=== PATIENT | male | born 1935 | race Caucasian/White ===

== ENCOUNTER 2016-05-20 10:21 | Outpatient (CLI) | payer MEDICARE, OTHER ==
[2016-05-20 11:16] LABS: Calc. Creatinine Clearance 0 mL/min (70-130); Estimated GFR-MDRD Greater than 90
== END 2016-05-20 10:22 | disposition home or self-care (01) ==
LOC: MADLAB 10:21
PROVIDERS: ATTEND Internal Medicine Medical Oncology
DX: C34.11 Malignant neoplasm of upper lobe, right bronchus or lung (principal); E53.9 Vitamin B deficiency, unspecified; R11.2 Nausea with vomiting, unspecified
CPT/HCPCS: 36415; 82565

== ENCOUNTER 2016-06-08 13:56 | Outpatient (CLI) | payer MEDICARE, OTHER ==
[2016-06-08 14:25] LABS: Bilirubin Negative (Negative); Blood, Urine Negative (Negative); Clarity Clear (Clear); Glucose, Urine (Dipstick) Negative (Negative); Leukocyte Negative (Negative); Nitrite Negative (Negative); Protein, Urine (Dipstick) Negative (Neg-Trace); Specific Gravity, Urine 1.025 (1.005-1.030)
[2016-06-08 14:43] LABS: ALT (SGPT) 14 U/L (0-55); AST (SGOT) 16 U/L (5-34); Albumin 4.1 g/dL (3.4-4.8); Alkaline Phosphatase 109 U/L (40-150); Anion Gap 18 mmol/L (10-20); BUN (Urea Nitrogen) 13 mg/dL (8.4-25.7); Bilirubin, Direct 0.1 mg/dL (0.1-0.3); Bilirubin, Total 0.3 mg/dL (0.2-1.2); Calc. Creatinine Clearance 0 mL/min (70-130); Calcium 9.1 mg/dL (7.8-10.44); Carbon Dioxide 28 mmol/L (23-31); Chloride 96 mmol/L (98-107); Estimated GFR-MDRD 83; Glucose 166 mg/dL (83-110); Potassium 3.9 mmol/L (3.5-5.1); Protein, Total 6.8 g/dL (5.8-8.1); Sodium 138 mmol/L (136-145)
[2016-06-08 15:33] LABS: Bacteria/HPF Rare-Few HPF (None Seen); RBC/HPF 0-3 HPF (0-3); Squamous Epithelial 0-3 HPF (0-3); WBC/HPF 0-3 HPF (0-3)
[2016-06-08 16:08] LABS: Mean Corpuscular HGB CONC 33.8 g/dL (32.0-36.0); Mean Corpuscular Volume 94.9 fL (80.0-94.0); Mean Platelet Volume 7.6 fL (7.4-10.4); Platelet Count 121 thou/uL (130-400); RBC Distribution Width 12.2 % (11.5-14.5); Red Blood Cell (RBC) Count 4.67 mill/uL (4.70-6.10); White Blood Cell (WBC) Count 5.4 thou/uL (4.8-10.8)
[2016-06-08 16:12] LABS: Band 1 % (5-11); Eosinophils 3 % (0-10); Lymphocytes 28 % (21-51); MDiff Complete? YES; Manual Diff?? YES; Monocytes 5 % (0-10); Neutrophil 63 % (42-75)
[2016-06-08 16:13] LABS: Anisocytosis SLIGHT = 6-15 cells (100X) (0-5/hpf)
[2016-06-08 16:14] LABS: PLT Morphology Comment Appears Adequate
== END 2016-06-08 13:57 | disposition home or self-care (01) ==
LOC: MADLAB 13:56
PROVIDERS: ATTEND Urology
DX: C61 Malignant neoplasm of prostate (principal); R35.1 Nocturia
CPT/HCPCS: 36415; 80048; 80076; 81001; 84153; 85025; 87086

== ENCOUNTER 2016-08-11 14:50 | Inpatient (IN) | payer MEDICARE, OTHER ==
[2016-08-11] MEDS ORDERED: Benzonatate 100 MG CAP PO PRN (17:35)
[2016-08-11] MEDS ORDERED: Acetaminophen 325 MG TAB PO PRN (17:42)
[2016-08-11] MEDS: Ipratropium Bromide 2.5 ml Neb NEB SCH (19:10)
[2016-08-11] MEDS: Mometasone/Formoterol 60 PUFF AER INH SCH (19:28)
[2016-08-11] MEDS ORDERED: Acyclovir 200 mg Capsule ONE (20:35)
[2016-08-11] MEDS: Acyclovir 200 mg Capsule PO SCH (20:45)
[2016-08-11] MEDS: Doxycycline 100 MG CAP PO SCH (20:45)
[2016-08-11] MEDS: Cefdinir 300 MG CAP PO SCH (20:45)
[2016-08-11] MEDS: diphenhydrAMINE HCl 25 MG CAP PO SCH (20:46)
[2016-08-11] MEDS: Tamsulosin HCl 0.4 MG CAP PO SCH (20:46)
[2016-08-11] MEDS: Simvastatin 20 MG TAB PO SCH (20:47)
[2016-08-11] MEDS: Triamcinolone 0.1% Cream 15 GM TUBE TOP SCH (20:47)
[2016-08-11] MEDS: Dronedarone HCl 400 MG TAB PO SCH (20:49)
[2016-08-11] MEDS: Albuterol Sulfate 2.5 mg/3 ml Neb NEB PRN (20:51)
[2016-08-11] MEDS ORDERED: Donepezil HCl 10 MG TAB PO SCH (21:00)
[2016-08-12] MEDS: Acyclovir 200 mg Capsule PO SCH ×6 (00:18→23:45)
[2016-08-12] MEDS: Ipratropium Bromide 2.5 ml Neb NEB SCH ×5 (00:19→23:45)
--- NOTE | 2016-08-12 03:22 | HP ---
DATE OF ADMISSION: 08/11/2016 ATTENDING: Dr. Welch. REASON FOR ADMISSION: General weakness. HISTORY OF PRESENT ILLNESS: Mr. Reyna was recently admitted from [facility] on 08/01/2016 to 08/05/2016 secondary to chronic obstructive pulmonary disease exacerbation, atrial fibrillation with rapid ventricular response. He was continued on Multaq and was started on diltiazem p.o. after receiving Cardizem drip in the hospital.Patient was discharged, with rate controlled and with improved COPD exacerbation. He was discharged on doxycycline 100 mg b.i.d. for 7 days and Omnicef 300 mg p.o. b.i.d. for 7 days and Medrolpak. Spouse who serve as the patient's primary caregiver/surrogate decision maker took the patient to the clinic today for routine followup. Spouse reports that patient remains generally weak at home. Patient also reports intermittent dyspnea on exertion, noticeable after walking at a certain distance. reports that patient has to stop in the middle of walking with significant shortness of breath, before he can continue what he is doing. He had not been coughing much and he has been receiving bronchodilator treatment intermittently at home. Patient denies chest pain, pain with breathing, sputum production or bloody sputum.He has been febrile-free. In the clinic, patient reports he feels so tired when roomed in, wanting to rest. His O2 sats at that time was 91% at room air. Patient's ambulatory oxygen saturation showed significant desaturation at 83% at room air. Patient's O2 sats improved to 95% upon placement of continuous oxygenation per nasal cannula, well maintained to greater than 94% at 2 liters 02. The patient reports feeling much better upon resting. Overall, vital signs are within normal limits. His heart rate has been well controlled. After further discussion of the patient's treatment options, patient and spouse decided to proceed with skilled rehabilitation in [facility] post- hospitalization for muscle strengthening and gait training.He will also be monitored for COPD symptoms. Thus, patient was referred to [facility] and admitted for Skilled rehabilitation in [facility] swing bed. When reevaluated in the room, patient was lying comfortably in bed. No family member was present at bedside. The patient reports he is doing fine. He started therapy. He started walking with therapy earlier and did fine. He did not have any symptoms of shortness of breath that he was continuously on oxygen therapy per nasal cannula. No new issues reported. PAST MEDICAL HISTORY: COPD, hypertension, dyslipidemia, chronic atrial fibrillation, history of prostate cancer status post chemo, dementia, BPH. PAST SURGICAL HISTORY: A kidney stone lithotripsy. SOCIAL HISTORY: Lives at home with spouse who serves as the primary caregiver. He was a former cigarette smoker. No alcohol abuse, no drug use. FAMILY HISTORY: Noncontributory. ALLERGIES: None. CURRENT MEDICATIONS: Omnicef 300 mg p.o. b.i.d. for one more day, doxycycline 100 mg p.o. b.i.d. for one more day, Multaq 400 mg 2 times a day, Advair 1 puff 2 times a day, Spiriva HandiHaler 18 mcg inhalation 1 a day, albuterol 2.5 nebulizer q.4 hours p.r.n., aspirin 81 mg p.o. daily, Benzonatate 100 mg t.i.d. , vitamin D3 at 1000 units daily, diltiazem 90 mg p.o. daily, Aricept 10 mg p.o. at bedtime, Medrol Dax completed, hydrochlorothiazide 25 mg p.o. daily, multivitamins 1 tab daily, Zocor 20 mg p.o. at bedtime, tamsulosin 0.4 mg at bedtime, multivitamins 1 capsule 2 times a day, diphenhydramine 25 mg p.o. at bedtime. TESTS/PROCEDURES: 1.Echocardiogram on 08/02/2016 showed mildly increased left ventricular size, mildly decreased global ejection fraction estimated EF of 40%-45% and possible diastolic dysfunction. Right ventricular size and function was normal. 2.Chest Xray on 08/03/2016 no acute cardiopulmonary process, a stable chronic lung changes, no other interval change. 3. Modified barium swallow study on 08/04/2016 showed a small amount of penetration with thin liquids and small amount of pulling within the vallecula, but no evidence of aspiration. REVIEW OF SYSTEMS: GENERAL: Reports no fever, no chills. Reports fatigue and general weakness with good appetite. HEENT: No acute visual changes or hearing changes. RESPIRATORY: Reports intermittent wheezing. Intermittent dyspnea on exertion, no pain with breathing. No bloody sputum. CARDIAC: No chest pain, no paroxysmal nocturnal dyspnea, no leg edema. Reports dyspnea on exertion. GASTROINTESTINAL: No nausea, vomiting, diarrhea. Reports intermittent constipation. No incontinence. GENITOURINARY: No dysuria, hematuria, frequency. Positive urgency, no incontinence. No urinary retention. MUSCULOSKELETAL: Reports intermittent joint pains, no joint swelling, no stiffness. NEUROLOGIC: No new motor or sensory losses. No loss of consciousness. SKIN: Reports intermittent rashes on the low back best noted every time he receives chemotherapy. This time after the recent hospitalization, spouse reports vesicular formation/rashes on the right lower back to the buttocks area. No itching, no jaundice. PSYCH: Reports memory loss, intermittent anxiety. No significant psychosis or hallucinations. PHYSICAL EXAMINATION: VITAL SIGNS: Temperature 97.1, pulse 64, respirations 21, O2 sats 96 at 2 liters per nasal cannula, blood pressure 154/68. GENERAL: The patient is awake, alert, not in distress, comfortably resting in bed. HEENT: Normocephalic, atraumatic. PERRL, intact EOM. Nonicteric sclera. Oral mucosa is moist. NECK: Supple. No LAD, no JVD, no bruit. CHEST: Normal excursion, nonlabored breathing. RESPIRATORY: Good air movements, positive faint expiratory wheeze, no rhonchi, no rales, no crackles. HEART: Rate controlled. Normal S1 and S2. No murmurs. ABDOMEN: Flat, soft, normoactive bowel sounds, nondistended, nontender. No rebound, no guarding. Negative CVA tenderness bilaterally. EXTREMITIES: No edema, no cyanosis. Moves all extremities symmetrically.Positive clubbing. SKIN: Vesicular tender rash scattered in the lower back to the upper gluteal area with erythematous base. NEUROLOGIC: Nonfocal. Gait unsteady. PSYCHIATRIC: Appears calm appropriate demeanor and affect. Latest blood work from the recent hospitalization. LABORATORY DATA: On 08/02/2016, white count 4.2, hemoglobin 14.4, hematocrit 42.2, platelet count 190. Chemistry 08/03/2016. Sodium 133, potassium 4.3, chloride 98, BUN 15, creatinine 0.75, estimated GFR greater than 90, glucose 149 , calcium 8.8. BNP 127.1. Lipase 22. ASSESSMENT: 1. Physical deconditioning. 2. COPD with recent acute exacerbation. 3. Hypoxemia O2 requiring. 4. New onset Vesicular rash, likely shingle rash. 5. Atrial fibrillation with rapid ventricular response, now rate controlled. 6. Hypertension. 7. Dementia without behavioral disturbances. 8. Dyslipidemia. 9. Unsteady gait. 10. History of prostate cancer, on chemotherapy. 11. Immunocompromised patient. PLAN: 1. The patient is admitted to [facility] for purposes of skilled rehabilitation. PT will be consulted to gain modified independence with mobility and household ambulation. Weightbearing as tolerated. We will continue to monitor the patient for any medical comorbidities that may interfere with rehab progress. We will continue all current medications except for Aricept secondary to drug reaction with Multaq that may trigger atrial fibrillation.Start oral antiviral and topical steroid for the shingle rash. Further recommendations depending on the hospital course. 2. GI prophylaxis with PPI. 3. Deep venous thrombosis prophylaxis with SCD. 4. Estimated length of stay 1-2 weeks. CODE STATUS: Patient reports DNR. This was confirmed by his spouse Ms. Crissy Reyna. SATHISH
[2016-08-12] MEDS: Mometasone/Formoterol 60 PUFF AER INH SCH ×2 (07:00→20:40)
[2016-08-12] MEDS: Multivitamin W/ Minerals 1 TAB PO SCH (08:32)
[2016-08-12] MEDS: Hydrochlorothiazide 25 MG TAB PO SCH (08:33)
[2016-08-12] MEDS: Vit A,C & E/Lutein/Minerals Tablet PO SCH ×2 (08:33→20:44)
[2016-08-12] MEDS: Dronedarone HCl 400 MG TAB PO SCH ×2 (08:33→20:45)
[2016-08-12] MEDS: Cefdinir 300 MG CAP PO SCH ×2 (08:33→20:43)
[2016-08-12] MEDS: Aspirin 81 mg Enteric Coated Tablet PO SCH (08:33)
[2016-08-12] MEDS: Triamcinolone 0.1% Cream 15 GM TUBE TOP SCH ×2 (08:34→20:40)
[2016-08-12] MEDS: Doxycycline 100 MG CAP PO SCH ×2 (08:34→20:43)
[2016-08-12] MEDS ORDERED: predniSONE 20 MG TAB PO SCH (13:30)
--- NOTE | 2016-08-12 15:18 | RAD ---
PA AND LATERAL VIEWS OF CHEST: Date: 08/12/16 HISTORY: COPD with exacerbation. FINDINGS: Comparison made with exam of 07/31/16. The heart size is normal. The aorta is tortuous. Evidence of old granulomatous disease and parenchym al scarring is stable. No confluent areas of consolidation, pneumothoraces, or pleural effusions are identified. IMPRESSION: Stable exam. No acute process. POS: [facility]
[2016-08-12] MEDS: Tamsulosin HCl 0.4 MG CAP PO SCH (20:43)
[2016-08-12] MEDS: Simvastatin 20 MG TAB PO SCH (20:44)
[2016-08-12] MEDS: diphenhydrAMINE HCl 25 MG CAP PO SCH (20:44)
[2016-08-13] MEDS: Ipratropium Bromide 2.5 ml Neb NEB SCH ×3 (05:27→18:05)
[2016-08-13] MEDS: Acyclovir 200 mg Capsule PO SCH ×4 (07:18→20:05)
[2016-08-13] MEDS: Mometasone/Formoterol 60 PUFF AER INH SCH ×2 (07:19→18:24)
[2016-08-13] MEDS: Aspirin 81 mg Enteric Coated Tablet PO SCH (08:45)
[2016-08-13] MEDS: Vit A,C & E/Lutein/Minerals Tablet PO SCH ×2 (08:46→20:07)
[2016-08-13] MEDS: Hydrochlorothiazide 25 MG TAB PO SCH (08:46)
[2016-08-13] MEDS: Cefdinir 300 MG CAP PO SCH ×2 (08:46→20:05)
[2016-08-13] MEDS: Doxycycline 100 MG CAP PO SCH ×2 (08:47→20:05)
[2016-08-13] MEDS: Dronedarone HCl 400 MG TAB PO SCH ×2 (08:47→20:07)
[2016-08-13] MEDS: Multivitamin W/ Minerals 1 TAB PO SCH (08:47)
[2016-08-13] MEDS: Triamcinolone 0.1% Cream 15 GM TUBE TOP SCH ×2 (08:48→20:07)
[2016-08-13] MEDS ORDERED: predniSONE 20 MG TAB PO SCH (10:10)
[2016-08-13] MEDS: Albuterol Sulfate 2.5 mg/3 ml Neb NEB PRN (11:28)
[2016-08-13] MEDS: Simvastatin 20 MG TAB PO SCH (20:05)
[2016-08-13] MEDS: diphenhydrAMINE HCl 25 MG CAP PO SCH (20:06)
[2016-08-13] MEDS: Tamsulosin HCl 0.4 MG CAP PO SCH (20:06)
[2016-08-13] MEDS ORDERED: AREDS FORMULA PO SCH (21:00)
[2016-08-14] MEDS: Acyclovir 200 mg Capsule PO SCH ×6 (00:51→23:25)
[2016-08-14] MEDS: Ipratropium Bromide 2.5 ml Neb NEB SCH ×5 (00:52→23:26)
[2016-08-14] MEDS: Mometasone/Formoterol 60 PUFF AER INH SCH ×2 (07:00→19:48)
[2016-08-14] MEDS: Dronedarone HCl 400 MG TAB PO SCH ×2 (08:51→19:44)
[2016-08-14] MEDS: Cefdinir 300 MG CAP PO SCH ×2 (08:51→19:43)
[2016-08-14] MEDS: Doxycycline 100 MG CAP PO SCH ×2 (08:51→19:43)
[2016-08-14] MEDS: Aspirin 81 mg Enteric Coated Tablet PO SCH (08:51)
[2016-08-14] MEDS: Vit A,C & E/Lutein/Minerals Tablet PO SCH ×2 (08:51→19:44)
[2016-08-14] MEDS: Multivitamin W/ Minerals 1 TAB PO SCH (08:52)
[2016-08-14] MEDS: Hydrochlorothiazide 25 MG TAB PO SCH (08:52)
[2016-08-14] MEDS: Triamcinolone 0.1% Cream 15 GM TUBE TOP SCH ×2 (08:58→19:42)
[2016-08-14] MEDS: Simvastatin 20 MG TAB PO SCH (19:43)
[2016-08-14] MEDS: Tamsulosin HCl 0.4 MG CAP PO SCH (19:43)
[2016-08-14] MEDS: diphenhydrAMINE HCl 25 MG CAP PO SCH (19:43)
[2016-08-14] MEDS ORDERED: predniSONE 20 MG TAB PO SCH (21:45)
[2016-08-15] MEDS: Ipratropium Bromide 2.5 ml Neb NEB SCH ×4 (05:45→23:53)
[2016-08-15] MEDS: Mometasone/Formoterol 60 PUFF AER INH SCH ×2 (05:47→20:12)
[2016-08-15] MEDS ORDERED: predniSONE 20 MG TAB PO SCH (08:00)
[2016-08-15] MEDS: Triamcinolone 0.1% Cream 15 GM TUBE TOP SCH ×2 (08:35→20:15)
[2016-08-15] MEDS: Hydrochlorothiazide 25 MG TAB PO SCH (08:35)
[2016-08-15] MEDS: Dronedarone HCl 400 MG TAB PO SCH ×2 (08:35→20:14)
[2016-08-15] MEDS: Acyclovir 200 mg Capsule PO SCH ×5 (08:35→23:53)
[2016-08-15] MEDS: Aspirin 81 mg Enteric Coated Tablet PO SCH (08:35)
[2016-08-15] MEDS: Cefdinir 300 MG CAP PO SCH ×2 (08:36→20:14)
[2016-08-15] MEDS: Doxycycline 100 MG CAP PO SCH ×2 (08:36→20:14)
[2016-08-15] MEDS: Multivitamin W/ Minerals 1 TAB PO SCH (08:36)
[2016-08-15] MEDS: Vit A,C & E/Lutein/Minerals Tablet PO SCH ×2 (08:36→20:14)
[2016-08-15] MEDS: diphenhydrAMINE HCl 25 MG CAP PO SCH (20:13)
[2016-08-15] MEDS: Simvastatin 20 MG TAB PO SCH (20:15)
[2016-08-15] MEDS: Tamsulosin HCl 0.4 MG CAP PO SCH (20:15)
[2016-08-16] MEDS: Ipratropium Bromide 2.5 ml Neb NEB SCH ×4 (05:07→23:21)
[2016-08-16] MEDS: Mometasone/Formoterol 60 PUFF AER INH SCH ×2 (05:58→20:14)
[2016-08-16] MEDS: Vit A,C & E/Lutein/Minerals Tablet PO SCH ×2 (08:31→20:19)
[2016-08-16] MEDS: Cefdinir 300 MG CAP PO SCH (08:31)
[2016-08-16] MEDS: Triamcinolone 0.1% Cream 15 GM TUBE TOP SCH ×2 (08:31→20:20)
[2016-08-16] MEDS: Acyclovir 200 mg Capsule PO SCH ×5 (08:31→23:21)
[2016-08-16] MEDS: Doxycycline 100 MG CAP PO SCH (08:31)
[2016-08-16] MEDS: Hydrochlorothiazide 25 MG TAB PO SCH (08:32)
[2016-08-16] MEDS: Aspirin 81 mg Enteric Coated Tablet PO SCH (08:32)
[2016-08-16] MEDS: Dronedarone HCl 400 MG TAB PO SCH ×2 (08:33→20:19)
[2016-08-16] MEDS: Multivitamin W/ Minerals 1 TAB PO SCH (08:33)
[2016-08-16] MEDS ORDERED: predniSONE 20 MG TAB PO SCH (11:45)
[2016-08-16] MEDS: diphenhydrAMINE HCl 25 MG CAP PO SCH (20:18)
[2016-08-16] MEDS: Tamsulosin HCl 0.4 MG CAP PO SCH (20:19)
[2016-08-16] MEDS: Simvastatin 20 MG TAB PO SCH (20:19)
[2016-08-17] MEDS: Mometasone/Formoterol 60 PUFF AER INH SCH ×2 (05:22→18:01)
[2016-08-17] MEDS: Ipratropium Bromide 2.5 ml Neb NEB SCH ×3 (05:23→17:55)
[2016-08-17] MEDS: predniSONE 20 MG TAB PO SCH (08:05)
[2016-08-17] MEDS: Vit A,C & E/Lutein/Minerals Tablet PO SCH ×2 (08:06→20:04)
[2016-08-17] MEDS: Multivitamin W/ Minerals 1 TAB PO SCH (08:06)
[2016-08-17] MEDS: Aspirin 81 mg Enteric Coated Tablet PO SCH (08:06)
[2016-08-17] MEDS: Triamcinolone 0.1% Cream 15 GM TUBE TOP SCH ×2 (08:06→20:04)
[2016-08-17] MEDS: Hydrochlorothiazide 25 MG TAB PO SCH (08:07)
[2016-08-17] MEDS: Dronedarone HCl 400 MG TAB PO SCH ×2 (08:07→20:04)
[2016-08-17] MEDS: Albuterol Sulfate 2.5 mg/3 ml Neb NEB PRN ×2 (12:17→17:53)
[2016-08-17] MEDS: diphenhydrAMINE HCl 25 MG CAP PO SCH (20:03)
[2016-08-17] MEDS: Simvastatin 20 MG TAB PO SCH (20:04)
[2016-08-17] MEDS: Tamsulosin HCl 0.4 MG CAP PO SCH (20:04)
[2016-08-18] MEDS: Ipratropium Bromide 2.5 ml Neb NEB SCH ×4 (00:29→17:34)
[2016-08-18] MEDS: Mometasone/Formoterol 60 PUFF AER INH SCH ×2 (05:51→18:01)
[2016-08-18] MEDS: Vit A,C & E/Lutein/Minerals Tablet PO SCH ×2 (08:52→20:48)
[2016-08-18] MEDS: predniSONE 20 MG TAB PO SCH (08:52)
[2016-08-18] MEDS: Multivitamin W/ Minerals 1 TAB PO SCH (08:53)
[2016-08-18] MEDS: Aspirin 81 mg Enteric Coated Tablet PO SCH (08:53)
[2016-08-18] MEDS: Dronedarone HCl 400 MG TAB PO SCH ×2 (08:53→20:48)
[2016-08-18] MEDS: Hydrochlorothiazide 25 MG TAB PO SCH (08:53)
[2016-08-18] MEDS: Triamcinolone 0.1% Cream 15 GM TUBE TOP SCH ×2 (08:55→20:49)
[2016-08-18] MEDS: Simvastatin 20 MG TAB PO SCH (20:49)
[2016-08-18] MEDS: diphenhydrAMINE HCl 25 MG CAP PO SCH (20:49)
[2016-08-18] MEDS: Tamsulosin HCl 0.4 MG CAP PO SCH (20:49)
[2016-08-19] MEDS: Ipratropium Bromide 2.5 ml Neb NEB SCH ×5 (00:20→23:50)
[2016-08-19] MEDS: Mometasone/Formoterol 60 PUFF AER INH SCH ×2 (05:55→19:54)
[2016-08-19] MEDS: Aspirin 81 mg Enteric Coated Tablet PO SCH (08:09)
[2016-08-19] MEDS: Hydrochlorothiazide 25 MG TAB PO SCH (08:09)
[2016-08-19] MEDS: Dronedarone HCl 400 MG TAB PO SCH ×2 (08:10→19:57)
[2016-08-19] MEDS: Triamcinolone 0.1% Cream 15 GM TUBE TOP SCH ×2 (08:10→19:56)
[2016-08-19] MEDS: Multivitamin W/ Minerals 1 TAB PO SCH (08:10)
[2016-08-19] MEDS: Vit A,C & E/Lutein/Minerals Tablet PO SCH ×2 (08:10→19:56)
[2016-08-19] MEDS: predniSONE 5 MG TAB PO SCH (08:10)
[2016-08-19] MEDS: Tamsulosin HCl 0.4 MG CAP PO SCH (19:57)
[2016-08-19] MEDS: diphenhydrAMINE HCl 25 MG CAP PO SCH (19:57)
[2016-08-19] MEDS: Simvastatin 20 MG TAB PO SCH (19:57)
[2016-08-20] MEDS: Ipratropium Bromide 2.5 ml Neb NEB SCH ×3 (05:57→17:18)
[2016-08-20] MEDS: Mometasone/Formoterol 60 PUFF AER INH SCH ×2 (06:04→20:16)
[2016-08-20] MEDS: Aspirin 81 mg Enteric Coated Tablet PO SCH (08:34)
[2016-08-20] MEDS: Hydrochlorothiazide 25 MG TAB PO SCH (08:35)
[2016-08-20] MEDS: Vit A,C & E/Lutein/Minerals Tablet PO SCH ×2 (08:35→20:20)
[2016-08-20] MEDS: Multivitamin W/ Minerals 1 TAB PO SCH (08:35)
[2016-08-20] MEDS: predniSONE 5 MG TAB PO SCH (08:35)
[2016-08-20] MEDS: Dronedarone HCl 400 MG TAB PO SCH ×2 (08:36→20:19)
[2016-08-20] MEDS: Triamcinolone 0.1% Cream 15 GM TUBE TOP SCH ×2 (08:36→20:21)
[2016-08-20 19:13] VITALS: BMI 24.5
[2016-08-20] MEDS: diphenhydrAMINE HCl 25 MG CAP PO SCH (20:19)
[2016-08-20] MEDS: Simvastatin 20 MG TAB PO SCH (20:19)
[2016-08-20] MEDS: Tamsulosin HCl 0.4 MG CAP PO SCH (20:20)
[2016-08-21] MEDS: Ipratropium Bromide 2.5 ml Neb NEB SCH ×3 (01:33→15:06)
[2016-08-21 08:16] VITALS: BP 140/68; TEMP 95.1
[2016-08-21] MEDS: Dronedarone HCl 400 MG TAB PO SCH (08:27)
[2016-08-21] MEDS: Aspirin 81 mg Enteric Coated Tablet PO SCH (08:27)
[2016-08-21] MEDS: Vit A,C & E/Lutein/Minerals Tablet PO SCH (08:27)
[2016-08-21] MEDS: Multivitamin W/ Minerals 1 TAB PO SCH (08:27)
[2016-08-21] MEDS: predniSONE 5 MG TAB PO SCH (08:28)
[2016-08-21] MEDS: Hydrochlorothiazide 25 MG TAB PO SCH (08:28)
[2016-08-21] MEDS: Mometasone/Formoterol 60 PUFF AER INH SCH (08:30)
[2016-08-21] MEDS: Triamcinolone 0.1% Cream 15 GM TUBE TOP SCH (08:32)
--- NOTE | 2016-08-22 02:41 | DIS ---
DATE OF ADMISSION: 08/11/2016 DATE OF DISCHARGE: 08/21/2016 ATTENDING: Dr. Welch. REASON FOR ADMISSION: General weakness, COPD exacerbation or with recent acute exacerbation. FINAL DIAGNOSES: 1. Physical deconditioning. 2. Chronic obstructive pulmonary disease with recent acute exacerbation. 3. Hypoxemia O2 requiring. No recommending continuous home therapy. 4. Shingle rash, improved. 5. Atrial fibrillation with rapid ventricular response, now rate controlled. 6. Hypertension, stable. 7. Dementia with behavioral disturbances, stable for supportive care only. 8. Dyslipidemia. 9. Unsteady gait, improved. 10. History of prostate cancer chemotherapy. 11. Immunocompromised patient. 12. Recent echocardiogram, mild ejection fraction estimated at 40-45 mg and possible diastolic dysf unction. DISPOSITION: Home with . CONDITION ON DISCHARGE: Stable. HOME MEDICATIONS: 1. Prednisone 5 mg p.o. daily for 5 days. 2. Multaq 400 mg 2 times a day. 3. Advair 1 puff 2 times a day. 4. Spiriva HandiHaler 18 mcg inhalation once a day. 5. Albuterol 2.5 mg nebulizer q. 4 hours p.r.n. 6. Aspirin 81 mg p.o. daily. 7. Benzonatate 100 mg p.o. t.i.d. 8. Vitamin D3 at 1000 units daily. 9. Diltiazem 90 mg p.o. daily. 10. Zocor 20 mg p.o. at bedtime. 11. Tamsulosin 0.4 mg p.o. at bedtime. 12. Multivitamin 1 tablet two times a daily. 13. Hydrochlorothiazide 25 mg p.o. daily. 14. Aricept 10 mg discontinued secondary to history of atrial fibrillation. DIET: Regular. ACTIVITY: Ad mee. Home O2 therapy. FOLLOW UP: 1. Follow up with Dr. Welch in 1-2 weeks, sooner with concern. 2. Follow up with Dr. Benavides in 2 weeks for chemotherapy appointment. 3. Follow up with Cardiology and sas programmer remote as previously recommended. HISTORY OF PRESENT ILLNESS AND HOSPITAL COURSE: Mr. Reyna is an 81-year-old with multiple chroni c medical conditions including COPD, atrial fibrillation with recent RVR, dementia, hypertension. Darline matos was recently admitted to [facility] on 08/01 to 08/05/2016 secondary to chronic obstructive pulmonary disease exacerbation and atrial fibrillation with RVR. He was continued on M ultaq and started on diltiazem and was discharged home with rate controlled and improved COPD exphu crockett. He was discharged with doxycycline 100 mg p.o. b.i.d. for 7 days, Omnicef 300 mg p.o. b.i.d . 7 days, and Medrol Dax. Spouse reported that patient remains generally weak at home with intermit tent shortness of breath noticeable on exertion. When he followed up on 08/11/2016 to the clinic, nikcolas sears was noted to be generally weak with dyspnea on exertion and desaturation at 85% on room air upon a mbulation. O2 improved with the use of 2 liters per nasal cannula up to greater than 94%. After wesley hoang discussion with the and the patient, patient concurs to be admitted to [facility] for skilled rehabilitation. Patient did well with his rehabilitation after 10 days with therap y. He was walking about 150 feet back and forth x2 with steady gait, but decreased endurance prior to discharge. He continues to desats with ambulation at 85% at room air. He needs to a few minutes of rest before he goes, but it goes back to 92% on room air. O2 improved to 91-92% at 2 liters per nasal cannula. O2 was ordered for home use and safety issues reviewed with patient and prior to discharge. He is highly recommended to continue using his O2 at home continuously, but especiall y with ambulation. Patient's oral steroid was extended with tapered dose. He was recommended to co mplete prednisone, oral 5 mg p.o. daily for the next 5 days and continue his breathing treatments in cluding Spiriva and Advair use For maintenance. He is recommended to follow up with his cardio and sas programmer remote as previously scheduled from the recent hospitalization. During this hospitalization, patient was also noted to have a tender vesicular rash of different sizes at the lower back. This was deemed shingle rash. He was treated with acyclovir and oral prednisone. He is supposed to have his chemotherapy scheduled while he was in skilled rehabilitation. Care was coordinated with Dr. Elpidio paz by phone. Dr. Benavides recommended 2 weeks post-oral steroid use before rescheduling his emotherapy. was notified and will re-schedule the appointment with the oncologist. Vital signs prior to discharge, blood pressure 140/68, temperature 97.1, respiration 18, pulse 82, o xygen saturation 91-93% at 2 liters per nasal cannula. DISCHARGE ORDERS: Refer to home health to continue rehab and [facility]. TIME SPENT ON THIS DISCHARGE: Include for patient's assessment and coordinating of care 32 minutes.
== END 2016-08-21 17:20 | disposition home health service (06) | DRG 948 ==
LOC: MADMS 14:50
PROVIDERS: ADMIT Family Medicine; ATTEND Family Medicine
DX: R53.1 Weakness (principal); F03.91 Unspecified dementia, unspecified severity, with behavioral disturbance; J44.1 Chronic obstructive pulmonary disease with (acute) exacerbation; I10 Essential (primary) hypertension; E78.5 Hyperlipidemia, unspecified; Z85.46 Personal history of malignant neoplasm of prostate; N40.0 Benign prostatic hyperplasia without lower urinary tract symptoms; Z79.82 Long term (current) use of aspirin; R26.81 Unsteadiness on feet; I48.2 Chronic atrial fibrillation; B02.9 Zoster without complications
CPT/HCPCS: 71020; 94640; G8978-GP-CJ; G8979-GP-CI; J7506; J7611; J7644

== ENCOUNTER 2016-09-08 10:18 | Emergency (ER) | payer MEDICARE, OTHER ==
[2016-09-08 11:03] LABS: #Lymphocytes 0.6 thou/uL (1.20-3.40); #Monocytes 0.1 thou/uL (0.11-0.59); #Neutrophils 8.2 thou/uL (1.40-6.50); %Basophils 0.1 % (0.0-1.0); %Eosinophils 0.2 % (0.0-10.0); %Lymphocytes 7.1 % (21.0-51.0); %Monocytes 1.3 % (0.0-10.0); %Neutrophils 91.2 % (42.0-75.0); Hemoglobin 13.9 g/dL (14.0-18.0); Mean Corpuscular HGB CONC 32.9 g/dL (32.0-36.0); Mean Corpuscular Hemoglobin 32.1 pg (27.0-31.0); Mean Corpuscular Volume 97.5 fl (80.0-94.0); Mean Platelet Volume 5.6 fL (7.4-10.4); Platelet Count 264 thou/uL (130-400); RBC Distribution Width 13.6 % (11.5-14.5); Red Blood Cell (RBC) Count 4.32 mill/uL (4.70-6.10)
--- NOTE | 2016-09-08 11:06 | RAD ---
PORTABLE CHEST ONE VIEW: Date: 09-08-16 Time: 10:46 a.m. History: Dyspnea. FINDINGS: Comparison is made with exam of 08-12-16. The heart size is normal. The lungs are expanded with stable chronic changes. Evidence of old granul omatous disease and parenchymal scarring are stable. No confluent areas of consolidation, pneumothor ax, or pleural effusions are identified. IMPRESSION: Stable exam. No acute process. POS: [facility]
[2016-09-08 11:08] LABS: PTT 27.6 SEC (22.9-36.1); Prothrombin Time 13.2 SEC (12.0-14.7)
[2016-09-08 11:13] LABS: ALT (SGPT) 26 U/L (0-55); AST (SGOT) 15 U/L (5-34); Albumin 3.5 g/dL (3.4-4.8); Alkaline Phosphatase 75 U/L (40-150); Anion Gap 14 mmol/L (10-20); BUN (Urea Nitrogen) 15 mg/dL (8.4-25.7); Bilirubin, Total 0.7 mg/dL (0.2-1.2); Calc. Creatinine Clearance 0 mL/min (70-130); Calcium 8.6 mg/dL (7.8-10.44); Carbon Dioxide 32 mmol/L (23-31); Chloride 96 mmol/L (98-107); Estimated GFR-MDRD Greater than 90; Globulin 2.2 g/dL (2.4-3.5); Glucose 174 mg/dL (83-110); Potassium 3.7 mmol/L (3.5-5.1); Protein, Total 5.7 g/dL (5.8-8.1); Sodium 138 mmol/L (136-145)
[2016-09-08 11:17] LABS: CKMB 0.8 ng/mL (0-6.6); Troponin I Less than 0.010 ng/mL (< 0.028)
[2016-09-08] MEDS ORDERED: methylPREDNISolone Sod Succ/PF 125 MG/2 ML VIAL ONE (11:17)
[2016-09-08] MEDS ORDERED: Mag-Al Plus 1200 MG/1200 MG/120 MG/30 ML UDCUP ONE (11:17)
[2016-09-08] MEDS ORDERED: Potassium Chloride 20 MEQ TAB ONE (11:46)
[2016-09-08 12:11] LABS: Bilirubin Negative (Negative); Blood, Urine Negative (Negative); Clarity Clear (Clear); Glucose, Urine (Dipstick) Negative (Negative); Leukocyte Negative (Negative); Nitrite Negative (Negative); Protein, Urine (Dipstick) Negative (Neg-Trace); Specific Gravity, Urine 1.025 (1.005-1.030); pH, Urine 8.5 (5.0-9.0)
[2016-09-08] MEDS ORDERED: Acetaminophen 325 MG TAB ONE (12:27)
[2016-09-08] MEDS ORDERED: Sodium Chloride 0.9% 1,000 ML BAG ONE (13:52)
== END 2016-09-08 12:35 | disposition short-term general hospital (02) ==
LOC: MADERS 10:18
DX: J44.1 Chronic obstructive pulmonary disease with (acute) exacerbation (principal); I48.91 Unspecified atrial fibrillation; E78.5 Hyperlipidemia, unspecified; I10 Essential (primary) hypertension; Z87.891 Personal history of nicotine dependence; Z87.442 Personal history of urinary calculi; Z79.82 Long term (current) use of aspirin; Z79.899 Other long term (current) drug therapy
CPT/HCPCS: 71010; 80053; 81003; 82553; 83880; 84484; 85025; 85610; 85730; 93005; 94640; 96361; 96374; 96375; 96376; J2930; J7050; J7620

== ENCOUNTER 2016-09-15 19:17 | Inpatient (IN) | payer MEDICARE, OTHER ==
[2016-09-16] MEDS ORDERED: Mometasone/Formoterol 60 PUFF AER INH SCH (07:00)
[2016-09-16] MEDS ORDERED: MAGNESIUM HYDROXIDE PO PRN (07:21)
[2016-09-16] MEDS ORDERED: Acetaminophen 325 MG TAB PO PRN (07:21)
[2016-09-16] MEDS ORDERED: ALUMINUM PO PRN (07:21)
[2016-09-16] MEDS ORDERED: HYDROcodone/Acetaminophen 5/325 mg Tablet PO PRN (07:23)
[2016-09-16] MEDS ORDERED: cloNIDine HCl 0.1 MG TAB PO PRN (07:23)
[2016-09-16] MEDS ORDERED: Sodium Chloride 0.65% Nasal 44 ML BOT FS PRN ×2 (07:23→07:42)
[2016-09-16] MEDS ORDERED: Diabetic Tussin 200 MG/10 ML UDCUP PO PRN (07:23)
[2016-09-16] MEDS ORDERED: PROPYLENE GLYCOL EA EYE PRN (07:23)
[2016-09-16] MEDS ORDERED: Loperamide HCl 2 MG CAP PO PRN (07:23)
[2016-09-16] MEDS ORDERED: GLYCERIN EA EYE PRN (07:23)
[2016-09-16] MEDS ORDERED: Mag-Al Plus 1200 MG/1200 MG/120 MG/30 ML UDCUP PO PRN (07:26)
[2016-09-16] MEDS ORDERED: Nitroglycerin 0.4 MG TAB (25 Tab Bottle) SL SCH (07:30)
[2016-09-16] MEDS ORDERED: Artificial Tear Sol 15 ML BOT EA EYE PRN (07:41)
[2016-09-16] MEDS ORDERED: Enoxaparin Sodium 40 MG/0.4 ML SYRINGE SC SCH ×2 (08:45→09:00)
[2016-09-16] MEDS: Metoprolol Tartrate 25 MG TAB PO SCH ×2 (08:51→19:58)
[2016-09-16] MEDS: Lisinopril 5 MG TAB PO SCH (08:51)
[2016-09-16] MEDS: Digoxin 0.25 MG TAB PO SCH (08:52)
[2016-09-16] MEDS: Aspirin 325 MG TAB PO SCH (08:54)
[2016-09-16] MEDS: Tamsulosin HCl 0.4 MG CAP PO SCH (08:55)
[2016-09-16] MEDS ORDERED: DILTIAZEM HCL 300 MG PO SCH (09:00)
[2016-09-16] MEDS ORDERED: Metoprolol Tartrate 25 MG TAB PO SCH ×2 (09:00)
--- NOTE | 2016-09-16 19:31 | HP ---
DATE OF ADMISSION: 09/15/2016 ATTENDING PHYSICIAN: Ida Welch M.D. REASON FOR ADMISSION: Skilled rehabilitation in [facility]. HISTORY OF THE PRESENT ILLNESS AND HOSPITAL COURSE: Mr. Reyna is a very pleasant 81-year-old male with multiple chronic medical conditions including atrial fibrillation, end-stage chronic obstructive pulmonary disease, congestive heart failure, dementia and right upper lung bronchogenic carcinoma, nonsmall cell post-chemoradiation with small pleural effusion. The patient was recently admitted to [facility] on 09/08/2016, due to acute onset of atrial fibrillation with rapid ventricular response. The patient was admitted to telemetry and was started on Cardizem drip and was eventually changed to oral with improvement in his heart rate. He had an echocardiogram that showed an ejection fraction of 35% to 40% with an elevated BNP. Of note, the patient was not reported in any acute fluid overload at the time of hospitalization. The patient also had worsening of his lung cancer noted on CT angio per report that did not show any pulmonary embolism. He was recommended to follow up with his primary oncologist in the outpatient setting for this. The patient was initially started on anticoagulation for his atrial fibrillation. However, after discussion with the family as well as the consultants with Pulmonary and Cardiology team, the patient was deemed not a good candidate for anticoagulant considering his age and comorbidities, thus anticoagulation was put on hold. During this hospitalization, the patient was also found to have an acute onset of chronic obstructive pulmonary disease, thus he was treated with a 5-day course of oral steroids and did well. On 09/08, the patient was cleared by Cardiology and Pulmonary to be discharged and was sent to [facility] to continue skilled rehabilitation. When seen on the floor, the patient was resting comfortably in bed. He is on continuous oxygen supplement per nasal cannula. was at bedside. reports apparent concern when the patient can go back home, she reports the patient is so adamant to go back home at this point. will try to stay every night with the patient to alleviate his anxiety. The patient denies any pain with breathing, chest pain, tightness of the chest or persistent cough. He has been afebrile. No other new issues are reported. PAST MEDICAL HISTORY: Hypertension and paroxysmal atrial fibrillation, on aspirin therapy.History of bronchogenic carcinoma and end-stage chronic obstructive pulmonary disease, chronic respiratory failure requiring continuous home oxygen, hypertension and senile dementia with some behavioral disturbances in the form of sundowning. Dyslipidemia. Benign enlargement of prostate. History of prostate cancer and gastroesophageal reflux. PAST SURGICAL HISTORY: Tube thoracostomy in 2014 for pneumothorax, colonoscopy , and lithotripsy for kidney stones. SOCIAL HISTORY: The patient is and lives with his at home in [place]. He is a former smoker. He quit smoking more than 10 years ago. He denies any alcohol intake. He denies any illicit drug abuse. FAMILY HISTORY: Noncontributory. ALLERGIES: NKDA. CURRENT MEDICATIONS: Diltiazem 300 mg p.o. daily, fluticasone and salmeterol inhaler 1 inhalation b.i.d., Atrovent 2.5 mg every q.6 hours inhaled, lisinopril 5 mg p.o. daily, metoprolol 25 mg b.i.d., multivitamins 1 tab daily, pantoprazole 40 mg p.o. daily, Zocor 20 mg p.o. at bedtime, tamsulosin 0.4 mg at bedtime, vitamin D3 1000 units daily, digoxin 0.25 mg p.o. daily and aspirin 325 mg p.o. daily. REVIEW OF SYSTEMS: GENERAL: Denies fever or chills. Reports fatigue and general weakness with good appetite. HEENT: No acute visual changes or hearing changes, no cold symptoms. RESPIRATORY: As per HPI. Currently, no active shortness of breath, wheezing or sputum production/bloody sputum. CARDIAC: No active chest pain, dyspnea on exertion, paroxysmal nocturnal dyspnea or cyanosis and edema. GASTROINTESTINAL: No nausea, vomiting or abdominal pain. Reports constipation. No rectal bleeding. GENITOURINARY: Voiding freely. No dysuria, hematuria, frequency or incontinence. MUSCULOSKELETAL: No arthralgia, joint effusion or muscle pain. NEUROLOGIC: No focal numbness, focal weakness, seizures, ticks or tremors. PSYCHIATRIC: Intermittent anxiety, memory loss. No hallucinations, no depression. SKIN: No rashes, no lesions. PHYSICAL EXAMINATION: VITAL SIGNS: Blood pressure 128/59, temperature 98.6, pulse 73, respiration rate 18 and O2 saturation 94% on 2 liters per nasal cannula. GENERAL: The patient is awake, alert and oriented x2. Comfortable and answers simple questions with appropriateness. Not in acute distress. HEENT: Normocephalic and atraumatic. PERRL, Intact EOM. Anicteric sclerae. No eye discharge. Frazee throat. Oral mucosa is moist. NECK: Supple. No LAD/JVD. No bruit. CHEST: Normal excursion, nonlabored breathing. RESPIRATORY: Distant breath sounds, prolonged expiratory phase. No rales, no wheezing, no crackles. CARDIAC: Rate controlled. Normal S1 and S2. No murmurs. ABDOMEN: Flat, soft, normoactive bowel sounds, nondistended and nontender. EXTREMITIES: No edema, no cyanosis. PSYCHIATRIC: Appears calm with appropriate demeanor and affect. NEUROLOGIC: Nonfocal, unsteady gait. LABORATORY AND IMAGING FINDINGS: Significant labs; WBC 3.4, hemoglobin 12.2, hematocrit 37.2 and platelets 177. INR 1.1. BUN 12 and creatinine 0.7. Liver function tests are within normal limits. Troponin is negative. Digoxin levels within normal limits. CT scan of the chest did not show pulmonary embolism. There is a right suprahilar mass, which has increased in size compared to the prior study. Echocardiogram showed an ejection fraction of 35% to 40% with mild tricuspid regurgitation. ASSESSMENT: 1. Deconditioning. 2. Atrial fibrillation with rapid ventricular response. Now rate controlled.Not a good candidate for anticogulation due to dementia and age. 3. Chronic obstructive pulmonary disease, end-stage with extensive bullous disease, stable. 4. Acute and chronic respiratory failure on home O2, stable. 5. Congestive heart failure with an ejection fraction of 35% to 40%. 6. Right upper lung bronchogenic carcinoma, nonsmall cell carcinoma. Status post chemoradiation and small pleural effusion. Now, with increasing in size of the pulmonary mass by CT scan. To be followed by Hematology, Dr. Benavides. 7. Hypertension. 8. Dyslipidemia. 9. Benign prostatic hypertrophy. 10. Gastroesophageal reflux disease. 11. History of dementia with some behavioral disturbances in the form of sundowning. For supportive care only. 12. History of prostate cancer. PLAN: The patient is admitted to [facility] for purposes of rehabilitation. PT will be consulted to gain modified independence with mobility and household ambulating with a rolling walker, weightbearing as tolerated. OT consultation to gain modified independence with self care ADL skills. The patient will be monitoring for any medical comorbidities that may interfere with rehab progress. We will continue all current medications and coordinate followup care with especially thereafter. CODE STATUS: DNR, as confirmed by , Crissy Reyna. Estimated length of stay is 1-2 weeks. MTDD
[2016-09-16] MEDS: Mometasone/Formoterol 60 PUFF AER INH SCH (19:56)
[2016-09-16] MEDS: Atorvastatin Calcium 10 MG TAB PO SCH (19:58)
[2016-09-16] MEDS: Senokot 8.6 MG TAB PO SCH (19:58)
[2016-09-16] MEDS ORDERED: Atorvastatin Calcium 10 MG TAB PO SCH (21:00)
[2016-09-17] MEDS: Mometasone/Formoterol 60 PUFF AER INH SCH ×2 (05:26→18:19)
[2016-09-17] MEDS ORDERED: Enoxaparin Sodium 40 MG/0.4 ML SYRINGE SC SCH (06:00)
[2016-09-17] MEDS: Digoxin 0.25 MG TAB PO SCH (09:33)
[2016-09-17] MEDS: Aspirin 325 MG TAB PO SCH (09:33)
[2016-09-17] MEDS: Lisinopril 5 MG TAB PO SCH (09:33)
[2016-09-17] MEDS: Metoprolol Tartrate 25 MG TAB PO SCH ×2 (09:34→20:59)
[2016-09-17] MEDS: Tamsulosin HCl 0.4 MG CAP PO SCH (09:34)
[2016-09-17] MEDS: Atorvastatin Calcium 10 MG TAB PO SCH (20:59)
[2016-09-17] MEDS: Senokot 8.6 MG TAB PO SCH (21:01)
[2016-09-18] MEDS: Mometasone/Formoterol 60 PUFF AER INH SCH ×2 (06:16→19:46)
[2016-09-18] MEDS: Tamsulosin HCl 0.4 MG CAP PO SCH (08:38)
[2016-09-18] MEDS: Aspirin 325 MG TAB PO SCH (08:38)
[2016-09-18] MEDS: Metoprolol Tartrate 25 MG TAB PO SCH ×2 (08:39→20:04)
[2016-09-18] MEDS: Lisinopril 5 MG TAB PO SCH (08:39)
[2016-09-18] MEDS: Digoxin 0.25 MG TAB PO SCH (08:40)
[2016-09-18] MEDS: Senokot 8.6 MG TAB PO SCH (20:04)
[2016-09-18] MEDS: Atorvastatin Calcium 10 MG TAB PO SCH (20:06)
[2016-09-19] MEDS: Mometasone/Formoterol 60 PUFF AER INH SCH ×2 (06:10→18:27)
[2016-09-19] MEDS: Aspirin 325 MG TAB PO SCH (09:03)
[2016-09-19] MEDS: Tamsulosin HCl 0.4 MG CAP PO SCH (09:04)
[2016-09-19] MEDS: Lisinopril 5 MG TAB PO SCH (09:04)
[2016-09-19] MEDS: Metoprolol Tartrate 25 MG TAB PO SCH ×2 (09:04→20:51)
[2016-09-19] MEDS: Digoxin 0.25 MG TAB PO SCH (09:04)
[2016-09-19] MEDS: Senokot 8.6 MG TAB PO SCH (20:51)
[2016-09-19] MEDS: Atorvastatin Calcium 10 MG TAB PO SCH (20:52)
[2016-09-20] MEDS: Mometasone/Formoterol 60 PUFF AER INH SCH ×2 (06:08→19:47)
[2016-09-20] MEDS: Digoxin 0.25 MG TAB PO SCH (09:18)
[2016-09-20] MEDS: Lisinopril 5 MG TAB PO SCH (09:18)
[2016-09-20] MEDS: Aspirin 325 MG TAB PO SCH (09:18)
[2016-09-20] MEDS: Tamsulosin HCl 0.4 MG CAP PO SCH (09:19)
[2016-09-20] MEDS: Metoprolol Tartrate 25 MG TAB PO SCH ×2 (09:19→19:49)
[2016-09-20] MEDS: Triamcinolone 0.1% Cream 15 GM TUBE TOP SCH ×2 (09:21→19:50)
[2016-09-20] MEDS: Senokot 8.6 MG TAB PO SCH (19:48)
[2016-09-20] MEDS: Atorvastatin Calcium 10 MG TAB PO SCH (19:49)
[2016-09-21] MEDS: Mometasone/Formoterol 60 PUFF AER INH SCH ×2 (05:54→18:12)
[2016-09-21] MEDS ORDERED: Acetaminophen 325 MG TAB PO PRN (09:07)
[2016-09-21] MEDS ORDERED: Diabetic Tussin 200 MG/10 ML UDCUP PO PRN (09:08)
[2016-09-21] MEDS ORDERED: Sodium Chloride 0.65% Nasal 44 ML BOT FS PRN (09:08)
[2016-09-21] MEDS ORDERED: HYDROcodone/Acetaminophen 5/325 mg Tablet PO PRN (09:09)
[2016-09-21] MEDS: Aspirin 325 MG TAB PO SCH (09:17)
[2016-09-21] MEDS: Tamsulosin HCl 0.4 MG CAP PO SCH (09:18)
[2016-09-21] MEDS: ACYCLOVIR 5% OINTMENT TOP SCH ×6 (09:19→18:17)
[2016-09-21] MEDS: Digoxin 0.25 MG TAB PO SCH (09:19)
[2016-09-21] MEDS: Lisinopril 5 MG TAB PO SCH (09:19)
[2016-09-21] MEDS: Metoprolol Tartrate 25 MG TAB PO SCH ×2 (09:19→20:15)
[2016-09-21] MEDS: Triamcinolone 0.1% Cream 15 GM TUBE TOP SCH ×2 (09:20→20:08)
--- NOTE | 2016-09-21 19:01 | RAD ---
PA AND LATERAL OF THE CHEST: Indication: Weight gain, shortness of breath. FINDINGS: The severe scarring within the right upper lobe is similar to a comparison dated 09-08-16. Small pleu ral effusion persists. Chronic lung changes involving the left lung is similar. Heart size is within normal limits. No acute osseous abnormality is evident. IMPRESSION: Stable exam. POS: [facility]
[2016-09-21] MEDS ORDERED: Furosemide 20 MG TAB PO SCH (19:30)
[2016-09-21] MEDS ORDERED: Potassium Chloride 20 MEQ TAB PO SCH (19:30)
[2016-09-21] MEDS: Atorvastatin Calcium 10 MG TAB PO SCH (20:04)
[2016-09-21] MEDS: Senokot 8.6 MG TAB PO SCH (20:04)
[2016-09-22 05:47] VITALS: BMI 26.3
[2016-09-22] MEDS: Mometasone/Formoterol 60 PUFF AER INH SCH (07:33)
[2016-09-22 07:57] VITALS: BP 132/70; TEMP 97
[2016-09-22] MEDS ORDERED: Potassium Chloride 20 MEQ TAB PO SCH (08:00)
[2016-09-22] MEDS: ACYCLOVIR 5% OINTMENT TOP SCH (08:59)
[2016-09-22] MEDS: Digoxin 0.25 MG TAB PO SCH (09:00)
[2016-09-22] MEDS: Lisinopril 5 MG TAB PO SCH (09:00)
[2016-09-22] MEDS ORDERED: Furosemide 20 MG TAB PO SCH (09:00)
[2016-09-22] MEDS: Tamsulosin HCl 0.4 MG CAP PO SCH (09:01)
[2016-09-22] MEDS: Aspirin 325 MG TAB PO SCH (09:01)
[2016-09-22] MEDS: Triamcinolone 0.1% Cream 15 GM TUBE TOP SCH (09:02)
[2016-09-22] MEDS: Metoprolol Tartrate 25 MG TAB PO SCH (09:02)
--- NOTE | 2016-09-23 04:59 | DIS ---
DATE OF ADMISSION: 09/15/2016 DATE OF DISCHARGE: 09/22/2016 ASSESSMENT: 1. Physical deconditioning. 2. Atrial fibrillation with rapid ventricular response. Now rate controlled. Not a good candidate for anticoagulation secondary to dementia and age. 3. Chronic obstructive pulmonary disease, end-stage, with extensive bullous disease. O2 dependent. 4. Acute on chronic respiratory failure, on home O2, improved. 5. Congestive heart failure, ejection fraction of 35% to 40%. 6. Right upper bronchogenic carcinoma, nonsmall cell carcinoma. Status post chemoradiation. Now w ith increasing size of the pulmonary mass by the latest CTA scan. Small pleural effusion. SECONDARY DIAGNOSES: 1. Hypertension, dyslipidemia, benign prostatic hypertrophy, gastroesophageal reflux disease, histo ry of dementia with some behavioral disturbances in the form of sundowning for supportive care only. 2. History of prostate cancer. 3. Unsteady gait. DISPOSITION: Home with . CONDITION ON DISCHARGE: Stable, but guarded. DIET: Low salt. ACTIVITIES: Ad mee. FOLLOWUP: 1. Follow up with Dr. Welch in 1 to 2 weeks, sooner with concerns. 2. Follow up with cellophane bath mixer, Dr. Jackson in 2 weeks. 3. Follow up with Dr. Corral in 1 to 2 weeks. 4. Follow up with Dr. Benavides in 2 weeks. 5. Home health to resume services for PT, OT, and snf services. MEDICATIONS: 1. Diltiazem 300 mg p.o. daily. 2. DuoNeb every 6 scheduled and every 4 hours p.r.n. 3. Lisinopril 5 mg p.o. daily. 4. Metoprolol 25 mg p.o. b.i.d. 5. Multivitamins 1 tablet daily. 6. Zocor 20 mg p.o. at bedtime. 7. Tamsulosin 0.4 mg p.o. at bedtime. 8. Vitamin D3 of 1000 units daily. 9. Digoxin 0.25 mg p.o. daily. 10. Aspirin 325 mg p.o. daily. 11. Lasix 20 mg p.o. daily. 12. Potassium 20 mEq p.o. daily. HISTORY OF PRESENT ILLNESS AND HOSPITAL COURSE: Mr. Reyna is a very pleasant 81-year-old [place] an male with multiple chronic medical conditions including chronic atrial fibrillation, end-stage ch ronic obstructive pulmonary disease, congestive heart failure with ejection fraction of 35% to 40%. History of right upper lung bronchogenic carcinoma, nonsmall cell, status post chemoradiation. Sabina ovalle was recently admitted to [facility] on 09/08/2016, secondary to acute on set of atrial fibrillation with rapid ventricular response. The patient was treated appropriately a t that time with Cardiology and Pulmonology consult. His BNP at that time was elevated and echocard iogram showed an ejection fraction of 35% to 40%. He was treated initially with Cardizem drip and w as discharged on oral diltiazem. His CT angio at that time showed no evidence of pulmonary emboli, but confirmed worsening of his lung cancer. The patient was not a candidate for anticoagulation sec ondary to history of dementia and advanced age and comorbidities. Patient was maintained on aspirin 325 mg p.o. daily instead. Patient was subsequently transferred to [facility] on 09/15, for purposes of skilled rehabilitation. Patient did seem to benefit from further rehabilitat ion prior to going back to the home environment. Patient did well on his one-week rehab course. I had a lengthy discussion with the family including his , Crissy and two biologic daughters that came from [place] of [place]. Family requested to send the patient home and continued home health therap y per the patient's request. They also had a discussion with the patient's oncologist, Dr. Benavides prior to discharge. The treatment options were discussed with Dr. Benavides and family agreed to a trial of immunotherapy and since chemotherapy is not an option any longer. Plan is to go home, to [place] and after a couple of weeks once patient is able to go back to [place] for followup with Yahir Benavides, he may possibly start on oral immunotherapy treatment. I am doing my discussion with t sruthi family prior to discharge, they were aware of patient's poor prognosis for the lung cancer and co morbidities associated with both the lungs and heart. We discussed in detail the poor status of his end-stage COPD, CHF with low ejection fraction, and chronic respiratory failure that needs continuo us O2 supplement. Family is well aware and is in an understanding that the last resort is to a tria l of immunotherapy if patient does not tolerate or does not respond significantly, they are consider ing palliative care. We will discuss this further along the road, but as of this time, we will cont inue therapy at home, get stronger, and stabilized. We also discussed patient's DO NOT RESUSCITATE/ DO NOT INTUBATE status with the family. Everybody was in full agreement of the above plan of care. The patient was discharged on 09/22/2016. Prior to discharge, patient has significantly increased in weight in a gradual manner during his rehabilitation stay. Chest x-ray prior to discharge was ob tained on 09/21/2016, that showed stable exam with small pleural effusions. A trial of oral diureti c was started and we will continue until further recommendations from the heart doctor. Vital signs prior to discharge, blood pressure 132/70, temperature 97, respirations 18, pulse is 88, O2 saturat ion is 92% at 2 liters per nasal cannula. Time spent on this discharge is 42 minutes.
== END 2016-09-22 11:45 | disposition home or self-care (01) | DRG 947 ==
LOC: MADMS 19:17
PROVIDERS: ADMIT Family Medicine; ATTEND Family Medicine
DX: R53.1 Weakness (principal); J96.20 Acute and chronic respiratory failure, unspecified whether with hypoxia or hypercapnia; J44.9 Chronic obstructive pulmonary disease, unspecified; Z99.81 Dependence on supplemental oxygen; I11.0 Hypertensive heart disease with heart failure; I50.9 Heart failure, unspecified; C34.11 Malignant neoplasm of upper lobe, right bronchus or lung; I48.0 Paroxysmal atrial fibrillation; Z79.82 Long term (current) use of aspirin; E78.5 Hyperlipidemia, unspecified; K21.9 Gastro-esophageal reflux disease without esophagitis; Z85.46 Personal history of malignant neoplasm of prostate; Z87.891 Personal history of nicotine dependence; N40.0 Benign prostatic hyperplasia without lower urinary tract symptoms; Z66 Do not resuscitate; R26.81 Unsteadiness on feet
CPT/HCPCS: 71020; 94640; G8978-GP-CJ; G8979-GP-CI; J1650; J7620

== ENCOUNTER 2016-09-29 08:19 | Outpatient (CLI) | payer MEDICARE, OTHER ==
[2016-09-29 08:56] LABS: Anion Gap 10 mmol/L (10-20); BUN (Urea Nitrogen) 8 mg/dL (8.4-25.7); Calc. Creatinine Clearance 0 mL/min (70-130); Calcium 8.6 mg/dL (7.8-10.44); Carbon Dioxide 34 mmol/L (23-31); Cardiac Risk 2.9 (Less than 4.5); Chloride 101 mmol/L (98-107); Cholesterol 137 mg/dl (< 200 Desired); Estimated GFR-MDRD Greater than 90; Glucose 108 mg/dL (83-110); HDL Cholesterol 47 mg/dL (>60 Neg Risk); LDL Cholesterol, Calculated 72 mg/dL; Potassium 4.3 mmol/L (3.5-5.1); Sodium 141 mmol/L (136-145); Triglycerides 90 mg/dL (Less than 150)
== END 2016-09-29 08:20 | disposition home or self-care (01) ==
LOC: MADLAB 08:19
PROVIDERS: ATTEND Internal Medicine Cardiovascular Disease
DX: E78.00 Pure hypercholesterolemia, unspecified (principal)
CPT/HCPCS: 36415; 80048; 80061

== ENCOUNTER 2017-10-30 12:38 | Emergency (ER) | payer MEDICARE, OTHER ==
--- NOTE | 2017-10-30 14:17 | RAD ---
RIGHT WRIST 3 VIEWS: Date: 10/30/17 HISTORY: Patient is status post fall with wrist pain. FINDINGS: The bones are demineralized. There are arthritic changes of the wrist, most pronounced at the triscap he and first carpometacarpal joint spaces. A definitive fracture is difficult to definitely visualize ; however, on the AP projection, there is an area of apparent cortical lucency involving the articula r surface of the distal radius, difficult to substantiate on the lateral view, but possibly represent ing a subtle interarticular fracture. Clinical correlation as to whether the pain is specifically rel ated to the distal radius, I think in this case it would be helpful to obtain a follow-up film in 7-1 0 days for reassessment. IMPRESSION: Possible subtle nondisplaced distal radial interarticular fracture. Clinical correlation as to pain i n this region. A follow-up examination may be helpful in assessment in 7-10 days. POS: RACQUEL
== END 2017-10-30 14:30 | disposition home or self-care (01) ==
LOC: MADERS 12:38
DX: S52.571A Other intraarticular fracture of lower end of right radius, initial encounter for closed fracture (principal); J44.9 Chronic obstructive pulmonary disease, unspecified; I10 Essential (primary) hypertension; E78.5 Hyperlipidemia, unspecified; Z87.442 Personal history of urinary calculi; Z87.891 Personal history of nicotine dependence; Z79.899 Other long term (current) drug therapy; Z79.82 Long term (current) use of aspirin; W19.XXXA Unspecified fall, initial encounter